=== PATIENT | male | born 1975 | race African-American/Black ===

== ENCOUNTER 2017-09-01 10:06 | Emergency (ER) | payer OTHER ==
[~2017-09-01] VITALS: Ht 177.8 cm; Wt 79.4 kg
--- NOTE | ~2017-09-01 | EKG ---
[facility] [place] [address] ELECTROCARDIOGRAM REPORT Name: CAMELIA WOLFE Room #: DEP [id number] Admission: 09/01/17 Attend Phys: Discharge: 09/01/17 Date of : 79 Report #: [id number] THIS REPORT FOR: //name// [facility] ED Test Date: 2017-09-01 Test Time: 11:50:22 Pat Name: CAMELIA WOLFE Department: Room: Gender: [employer] Consultant: Tanvi KEVIN : 1975 Requested By: Thanh Miner Order Number: [id number] MD: Mina Cazares Measurements Intervals Aubrey Rate: 89 P: 57 ND: 152 QRS: -22 QRSD: 87 T: -4 QT: 375 QTc: 457 Interpretive Statements Sinus rhythm Left ventricular hypertrophy Anterior Q waves, possibly due to LVH Nonspecific T abnormalities, lateral leads No previous ECG available for comparison Electronically Signed On 09-01-2017 15:33:11 [employer] by Mina Cazares [email or web address] <ELECTRONICALLY SIGNED> By: Mina Cazares MD, [facility] 09/01/17 1533 1150 1150 Mina Cazares MD, FACC /EPI
[2017-09-01 10:52] LABS: ABSOLUTE NEUTROPHILS 3.5 thou/uL (1.4-8.2); BASOPHILS 0.7 % (0.0-2.0); HEMATOCRIT 42.6 % (42.0-52.0); HEMOGLOBIN 14.5 gm/dL (14.0-18.0); LYMPHOCYTES 36.3 % (24.0-44.0); MCH 31.5 pg (26.0-34.0); MCHC 34.1 g/dL (28.0-37.0); MCV 92.4 fL (80.0-100.0); MONOCYTES 7.5 % (1.0-8.0); PLATELET COUNT 137 thou/uL (150-400); POLYS 54.5 % (36.0-66.0); RBC 4.61 mil/uL (4.50-6.00); RDW 13.5 % (10.5-14.5); WBC 6.4 thou/uL (4.0-11.0)
[2017-09-01 10:56] LABS: ANION GAP 6 mmol/L (7-16); BUN 14 mg/dL (7-18); CALCIUM 8.6 mg/dL (8.5-10.1); CHLORIDE 105 mmol/L (98-107); CO2 26 mmol/L (21-32); GLUCOSE 107 mg/dL (74-106); SODIUM 137 mmol/L (136-145)
[2017-09-01 11:04] LABS: TROPONIN-I < 0.04 ng/mL (<0.06)
[2017-09-01] MEDS ORDERED: NORVASC5 MG PO (11:49)
== END 2017-09-01 12:17 | disposition home or self-care (01) ==
LOC: ER 10:06
PROVIDERS: Physician Assistant
DX: I10 Essential (primary) hypertension (principal); F17.210 Nicotine dependence, cigarettes, uncomplicated

== ENCOUNTER 2018-09-23 11:08 | Emergency (ER) | payer OTHER ==
[~2018-09-23] VITALS: Ht 177.8 cm; Wt 74.8 kg
[~2018-09-23 11:08] MED LIST: NORVASC5 MG PO
[2018-09-23 11:27] VITALS: BP 145/104
== END 2018-09-23 12:14 | disposition left against medical advice (07) ==
LOC: ER 11:08
DX: R61 Generalized hyperhidrosis (principal); R05 Cough; F17.210 Nicotine dependence, cigarettes, uncomplicated; I10 Essential (primary) hypertension